=== PATIENT | female | born 1940 | race Caucasian/White ===

== ENCOUNTER → 2020-05-21 | Outpatient (CLI) | payer MEDICARE | END | disposition home or self-care (01) | LOC: RADCTMAIN 13:52 | PROVIDERS: ATTEND Internal Medicine Cardiovascular Disease | DX: Z53.9 Procedure and treatment not carried out, unspecified reason (principal) ==

== ENCOUNTER → 2020-06-11 | Outpatient (CLI) | payer MEDICARE ==
--- NOTE | 2020-06-11 12:01 | CT ---
EXAMINATION TYPE: CT angio neck DATE OF EXAM: 06/11/2020 HISTORY: Right carotid artery stenosis COMPARISON: NONE CT DLP: 211 mGycm. Automated Exposure Control for Dose Reduction was Utilized. TECHNIQUE: CTA scan of the neck is performed with IV Contrast, patient injected with 65 mL of Isovue 370, axial images are obtained, coronal and sagittal reformatted images are reviewed. Three-D recons tructed images are created on an independent workstation and reviewed. FINDINGS: Carotid/Vascular Structures: No significant plaque in aortic arch. There is however significant calci fied plaque in the left subclavian artery causing significant stenosis. Blooming artifact related to densely calcified plaque makes accurate evaluation suboptimal, significant stenosis is present. Near complete occlusion is felt likely. [id number] calcified plaque right brachiocephalic artery shortly after common carotid artery or igin. There is severe calcified plaque in the distal right comment carotid artery extending through c arotid bulb into the proximal internal carotid artery with moderate to severe plaque also extending i nto the external carotid artery. Significant stenosis is present. Luminal diameter narrowed to 9 mm i mage 74 carotid bulb level with reconstitution distally to 5.3 cm. Left common carotid artery shows n o significant plaque or stenosis. There is severe calcified plaque left carotid bulb extending into p roximal internal carotid artery causing significant stenosis. Lumen diameter narrowed to 1.9 mm on im age 78. There is reconstitution distal to this up to 6.7 mm. There is a patent left external carotid artery with moderate calcified plaque anteriorly but no significant stenosis. There is codominant radha tebrobasilar system patent to the basilar junction. 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 Moderate spondylolisthesis and degenerative changes C4-C5 through C6-C7 levels. Posterior spur disc complexes efface anterior t hecal sac at these levels. IMPRESSION: Presence of severe calcified plaque makes accurate evaluation of degree of stenosis subop timal. Significant stenosis left subclavian artery, suspected nearly completely occluded. Significant stenosis proximal left internal carotid artery around 70%. More severe stenosis distal right common carotid artery and proximal internal carotid artery. Long segment stenosis with luminal diameter narr owed to 85% level of carotid bulb. Consider direct catheter angiogram for further workup and/or treat ment.
== END | disposition home or self-care (01) ==
LOC: RADCTMAIN 10:13
PROVIDERS: ATTEND Internal Medicine Cardiovascular Disease
DX: I65.23 Occlusion and stenosis of bilateral carotid arteries (principal)
CPT/HCPCS: 82565; 84520; 70498; 36415; Q9967